=== PATIENT | male | born 1985 | race Two or more races ===

== ENCOUNTER 2025-03-20 13:26 | Emergency (ER) | payer BC ==
[~2025-03-20] VITALS: Ht 175.3 cm; Wt 79.4 kg
[2025-03-20] MEDS ORDERED: ACETAMINOPHEN 500 MG GEL..CAP PO ONE ×2 (15:00→17:21)
== END 2025-03-20 19:50 | disposition home or self-care (01) ==
LOC: ER 13:26
DX: S02.2XXA Fracture of nasal bones, initial encounter for closed fracture (principal); S00.31XA Abrasion of nose, initial encounter; W17.89XA Other fall from one level to another, initial encounter; Y93.31 Activity, mountain climbing, rock climbing and wall climbing; Y92.89 Other specified places as the place of occurrence of the external cause; Y99.9 Unspecified external cause status